=== PATIENT | female | born 1965 | race Caucasian/White ===

== ENCOUNTER 2020-02-12 04:34 | Emergency (ER) | payer SELFPAY ==
[~2020-02-12] VITALS: Ht 167.6 cm; Wt 90.0 kg
[2020-02-12] MEDS ORDERED: SODIUM CHLORIDE 0.9% 1,000 ML IV ONE (05:06)
[2020-02-12] MEDS ORDERED: MORPHINE SULFATE 4 MG/ML CPJ (NOT FOR IM USE) IV STA (05:06)
[2020-02-12] MEDS ORDERED: ONDANSETRON HCL 4MG/2ML INJ IV STA ×2 (05:06→08:19)
[2020-02-12] MEDS ORDERED: MAGNESIUM/ALUMINUM HYDROXIDE/SIMETHICONE 30ML UDC PO STA ×2 (05:06→08:19)
[2020-02-12 05:46] LABS: BASOPHILS % 0.5 % (0.0-2.0); HEMATOCRIT. 41.2 % (36.0-48.0); HEMOGLOBIN. 13.9 g/dL (12.0-16.0); LYMPHOCYTES % 11.1 % (20.0-50.0); MEAN CORPUSCULAR HEMOGLOBIN 28.2 pg (28.0-32.0); MEAN CORPUSCULAR VOLUME 83.5 fL (81.0-99.0); MONOCYTES % 7.3 % (2.0-8.0); NEUTROPHILS % 79.1 % (40.0-76.0); PLATELET 392 x1000/uL (130-400); RED BLOOD CELL COUNT 4.93 mill/uL (4.2-5.4); RED CELL DISTRIBUTION WIDTH 15.5 % (11.6-14.6)
[2020-02-12 05:53] LABS: CHLORIDE 105 mEq/L (98-107)
[2020-02-12] MEDS ORDERED: DICYCLOMINE 10 MG/5 ML ORAL SYR PO STA (08:19)
[2020-02-12] MEDS ORDERED: VISCOUS LIDOCAINE 2% 15 ML UDC PO STA (08:19)
[2020-02-12 11:00] VITALS: BP 136/72
== END 2020-02-12 11:30 | disposition home or self-care (01) ==
LOC: ER 04:49
DX: A05.9 Bacterial foodborne intoxication, unspecified (principal); I10 Essential (primary) hypertension; J45.909 Unspecified asthma, uncomplicated
CPT/HCPCS: 36415; 74176; 80053; 83690; 85025; 96361; 96374; 96375; 96376; 99285; J2270; J2405; J7030